=== PATIENT | female | born 1935 | race Caucasian/White ===

== ENCOUNTER 2022-04-03 12:45 | Emergency (ER) | payer MEDICARE, SELFPAY ==
--- NOTE | ~2022-04-03 | CT_ITS ---
EXAMINATION: CT CHEST WITHOUT CONTRAST CLINICAL INFORMATION: Fall. Sternal pain. COMPARISON: Chest x-ray 04/03/2022 TECHNIQUE: Multidetector volumetric CT imaging of the chest was done. Axial MIP volume rendering provided. Sagittal and coronal reformatted images were obtained. This CT examination was performed using dose optimization techniques as appropriate, variously including the following: *Automated exposure control *Adjustment of mA and/or kV according to patient size (this includes techniques or standardized protocols for targeted exams where dose is matched to indication/reason for exam; i.e. extremities or head) *Use of iterative reconstruction technique DLP: 234 mGy-cm FINDINGS: LUNGS: Mild mosaic attenuation of lung parenchyma. This suggests small airways disease. There are multiple scattered micronodules measuring 3 mm and smaller in lungs. No suspicious lung nodules. No acute airspace disease. No bronchiectasis. Central bronchial airways are open. MEDIASTINUM: Heart size is enlarged. Pacemaker leads in right atrium and right ventricle. Heavy calcification of mitral valve annulus. Moderate volume of coronary calcifications. Vascular wall calcifications of aorta. No aneurysm of aorta. Trace pericardial effusion. Large right lobe of thyroid measuring 2.5 x 3.7 x 2.8 cm. Coarse calcifications in the thyroid. Recommend nonemergent thyroid ultrasound. No significant lymphadenopathy. There are a few shotty subcentimeter lymph nodes in the pretracheal retrovascular space and AP window. CORONARY ARTERY CALCIFICATION: Moderate volume of coronary calcifications PLEURA: There is no pleural effusion. No pleural mass or thickening. AXILLA: No lymphadenopathy. UPPER ABDOMEN: Unremarkable. OSSEOUS STRUCTURES: Multilevel degenerative spondylosis spine. No acute osseous abnormality. CT/CT chest wo IV con IMPRESSION: 1. No acute abnormality of chest. Mosaic attenuation of lung parenchyma. This suggests small airways disease. No bronchiectasis. 2. Cardiomegaly. Pacemaker leads. Heavy calcification of mitral valve annulus. 3. Large right lobe of thyroid with coarse calcifications. Recommend follow-up thyroid ultrasound. 4. Multiple scattered micronodules measuring 3 mm and smaller in lungs. No suspicious lung nodules. 2017 Fleischner Society Recommendations for Lung Nodule(s): Follow-Up based on size (average of long- and short-axis diameters). Use most suspicious nodule for followup. Multiple Solid lung nodules < 6 mm: Follow up management based on most suspicious nodule. In a low-risk patient, no routine follow-up imaging is recommended. In a high-risk patient, a non-contrast Chest CT at 12 months is optional. If performed and the nodule is stable at 12 months, no further follow-up is recommended. These guidelines do not apply to patients younger than 35 years, immunocompromised patients, and patients with cancer. F/u in patients with significant comorbidities as clinically warranted. For lung cancer screening, adhere to Lung-RADS guidelines. Reference: Radiology. 2017 Angel; 284(1):228-243 5. No fracture. No acute osseous abnormality. Fleischner guidelines were followed.
--- NOTE | ~2022-04-03 | XR_ITS ---
EXAMINATION: XR CHEST CLINICAL INFORMATION: Sternal pain status post fall. COMPARISON: None TECHNIQUE: Frontal view of the chest was obtained. FINDINGS: Support devices: Left-sided pacemaker appears in good position. Asymmetric opacification is seen in the right infrahilar region. The right and left lung are otherwise clear. The heart is mildly enlarged. Coarse mitral annular calcifications are noted. The mediastinal structures are unremarkable left-sided pacemaker device appears in good position. No overt acute osseous abnormality. XR/XR chest 1V IMPRESSION: Asymmetric opacification in the right infrahilar the be projectional representing vascular crowding and/or atelectasis. An infiltrate cannot be completely excluded. If clinically indicated, PA and lateral views of the chest are recommended.
--- NOTE | 2022-04-03 14:04 | ED.GENADULT ---
HPI - General Adult General Chief complaint: Fall <JUAN Loredo Last Filed: 04/03/22 14:11> Stated complaint: fall a few weeks ago, sharp pain in chest <JUAN Loredo Last Filed: 04/03/22 14:11> Time Seen by Provider: 04/03/22 18:02 <JUAN Loerdo Last Filed: 04/03/22 14:11> Source: patient and family <JUAN Mayen Last Filed: 04/03/22 18:22> Mode of arrival: ambulatory <JUAN Mayen Last Filed: 04/03/22 18:22> Limitations: no limitations <JUAN Mayen Last Filed: 04/03/22 18:22> History of Present Illness HPI narrative: 87-year-old female presents to the ER for evaluation of pain in her chest wall after falling 2 weeks ago. She reports pain in her sternum with bruising of the area and on her right breast. She had an x-ray of the sternum done as an outpatient that showed no acute fracture. She states about 3 days ago she was getting intermittent shooting, nerve pains in the center of her chest that radiated out towards her ribs. This was happening when she was just sitting there. They would last a 2nd or 2. It went away on its own and recurred again yesterday. No associated shortness of breath, nausea, diaphoresis. No radiation of the pain. No chest pressure or tightness. Patient is wondering if these pains are related to her chest wall pains and bruising. <JUAN Mayen - Last Filed: 04/03/22 18:22> MD complaint: Chest wall pain <JUAN Mayen Last Filed: 04/03/22 18:22> Onset (ago): day(s) <JUAN Mayen Last Filed: 04/03/22 18:22> Location: chest <JUAN Mayen Last Filed: 04/03/22 18:22> Radiation: non-radiation <JUAN Mayen Last Filed: 04/03/22 18:22> Severity: moderate <JUAN Mayen Last Filed: 04/03/22 18:22> Quality: sharp <JUAN Mayen Last Filed: 04/03/22 18:22> Relieving factors: none <JUAN Mayen Last Filed: 04/03/22 18:22> Exacerbating factors: movement <JUAN Mayen Last Filed: 04/03/22 18:22> Associated symptoms: denies other symptoms <JUAN Mayen Last Filed: 04/03/22 18:22> Treatments prior to arrival: none <JUAN Mayen Last Filed: 04/03/22 18:22> Related Data Allergies/adverse reactions: Allergies Allergy/AdvReac Type Severity Reaction Status Date / Time Penicillins Allergy Rash Verified 04/03/22 14:07 <JUAN Loredo Last Filed: 04/03/22 14:11> Review of Systems Review of Systems: Constitutional: No Fever, No Chills Cardiovascular: + Chest Pain, No SOB, No Orthopnea, No Edema Respiratory: No Cough, No Sputum, No Wheezing, No dyspnea Gastrointestinal: No Nausea, No Vomiting, No Diarrhea, No abdominal Pain Genitourinary: No Dysuria, No Urinary Frequency, No Hematuria Musculoskeletal: No joint pain, No Myalgias Skin: No Skin Lesions, No rash Neuro: No Weakness, No Numbness, No Dizziness, No Headache Psych: + Anxiety/Panic, No Depression Heme/Lymph: + Bruising, No Lymphadenopathy <JUAN Mayen Last Filed: 04/03/22 18:22> [facility], LAT[facility] Social History Social History: Social History Advance Directives: No Advance Directives Information Provided: Yes <JUAN Loredo Last Filed: 04/03/22 14:11> Physical Exam ED Vital Signs: Vital Signs - 24 hr 04/03/22 14:08 Temperature 97 F Pulse Rate 60 Respiratory Rate 18 Blood Pressure 114/49 L Pulse Oximetry 93 Oxygen Delivery Method Room Air BMI result Body Mass Index 30.2 <JUAN Loredo Last Filed: 04/03/22 14:11> Vital Signs - 24 hr 04/03/22 14:08 Temperature 97 F Pulse Rate 60 Respiratory Rate 18 Blood Pressure 114/49 L Pulse Oximetry 93 Oxygen Delivery Method Room Air BMI result Body Mass Index 30.2 <JUAN Mayen Last Filed: 04/03/22 18:22> Appearance: Alert. Oriented X3. No acute distress. HEENT: normal external inspection Neck: Normal inspection. Neck supple. CVS: Normal heart rate and rhythm. Pulses normal. +systolic murmur. Right breast with ecchymosis in yellow/blue coloration. minimal tenderness over the ecchymosis. sternum without exquisite tenderness, no crepitus. Respiratory: No respiratory distress. Breath sounds normal. Abdomen: Soft and nontender. +BS x4 Skin: Skin warm and dry. Normal skin color. Normal skin turgor. No rashes. Extremities: normal inspection x4. Neuro: Oriented X 3. No motor deficit. No sensory deficit. Steady gait. <JUAN Mayen Last Filed: 04/03/22 18:22> Course Reevaluation(s) Reevaluation #1: 87 year old female presens s/p fall two weeks ago, complaining of pain to sternum, worsening over the past few days. When she fell she hit her sternum on a basket. PCP ordered an xray which was negative. Now reports severe sharp pain to sternal region. No SOB. No fevers, chills,no new trauma. No loc w/ fall or head strike. On eliquis PE: R. breast bruising and pain w/ palp to anterior chest wall Plan: labs, imaging, ekg <JUAN Loredo Last Filed: 04/03/22 14:11> Time: 14:11 <JUAN Loredo Last Filed: 04/03/22 14:11> Reevaluation #2: Lab workup is unremarkable. CT scan without traumatic injury. Troponin 5.4, not consistent with cardiac ischemia. History not consistent with ACS. She has appointment with her cardiac surgeon in early April. Comfortable with d/c home. D/C instructions d/w patient and family at the bedside. <JUAN Mayen Last Filed: 04/03/22 18:22> Time: 18:19 <JUAN Mayen Last Filed: 04/03/22 18:22> Medical Decision Making Lab Data Result diagrams: : 04/03/22 15:42 04/03/22 15:42 <JUAN Loredo - Last Filed: 04/03/22 14:11> Labs: Lab Results 04/03/22 04/03/22 04/03/22 Range/Units 15:42 15:42 15:42 WBC 6.0 (4.8-10.8) X10*3/uL RBC 5.15 (4.20-5.50) X10*6/uL Hgb 14.7 (12.0-16.0) g/dl Hct 45.4 (37.0-47.0) % MCV 88.2 (80.0-98.0) fL MCH 28.5 (27.0-33.0) pg MCHC 32.4 (31.0-35.0) g/dl RDW 15.3 (11.0-16.0) % Plt Count 173 (160-400) X10*3/uL MPV 8.4 L (9.4-12.3) fL Immature Gran % (Auto) 0.5 H (0.0-0.4) % Neut % (Auto) 66.4 (45-73) % Lymph % (Auto) 16.4 L (20-40) % Calvert % (Auto) 12.4 H (2-11) % Eos % (Auto) 3.5 (0-4) % Baso % (Auto) 0.8 (0-2) % Lymph # (Auto) 1.0 L (1.2-4.9) X10*3/uL Calvert # (Auto) 0.7 (0.1-1.2) X10*3/uL Eos # (Auto) 0.2 (0.0-0.4) X10*3/uL Baso # (Auto) 0.1 (0.0-0.2) X10*3/uL Abs Immat Gran (auto) 0.03 (0.00-0.03) X10*3/uL Absolute Neuts (auto) 4.0 (2.0-8.3) x10*3/uL Absolute Nucleated RBC 0.000 (0.0-0.012) X10*3/uL Nucleated RBC % (auto) 0.0 (0.0-0.2) /100WBC Sodium 138 (135-145) mmol/L Potassium 4.2 (3.3-5.1) mmol/L Chloride 101 (96-108) mmol/L Carbon Dioxide 24 (22-29) mmol/L Anion Gap 17 (12-20) BUN 32 H (9-16) mg/dL Creatinine 1.31 (0.5-1.4) mg/dL Estim Creat Clear Calc 28.6 Estimated GFR 38 Random Glucose 109 (60-115) mg/dL Calcium 10.4 H (8.4-10.2) mg/dL Magnesium 2.3 (1.6-2.6) mg/dL Total Bilirubin 1.8 H (0.0-1.0) mg/dL AST 17 (5-31) U/L ALT 11 (0-31) U/L Alkaline Phosphatase 46 (39-117) U/L Troponin I High Sens 5.4 (<3.5-17.0) ng/L Total Protein 7.6 (6.5-8.0) g/dL Albumin 4.6 (3.5-5.0) g/dL <JUAN Loredo - Last Filed: 04/03/22 14:11> Lab Results 04/03/22 04/03/22 04/03/22 Range/Units 15:42 15:42 15:42 WBC 6.0 (4.8-10.8) X10*3/uL RBC 5.15 (4.20-5.50) X10*6/uL Hgb 14.7 (12.0-16.0) g/dl Hct 45.4 (37.0-47.0) % MCV 88.2 (80.0-98.0) fL MCH 28.5 (27.0-33.0) pg MCHC 32.4 (31.0-35.0) g/dl RDW 15.3 (11.0-16.0) % Plt Count 173 (160-400) X10*3/uL MPV 8.4 L (9.4-12.3) fL Immature Gran % (Auto) 0.5 H (0.0-0.4) % Neut % (Auto) 66.4 (45-73) % Lymph % (Auto) 16.4 L (20-40) % Calvert % (Auto) 12.4 H (2-11) % Eos % (Auto) 3.5 (0-4) % Baso % (Auto) 0.8 (0-2) % Lymph # (Auto) 1.0 L (1.2-4.9) X10*3/uL Calvert # (Auto) 0.7 (0.1-1.2) X10*3/uL Eos # (Auto) 0.2 (0.0-0.4) X10*3/uL Baso # (Auto) 0.1 (0.0-0.2) X10*3/uL Abs Immat Gran (auto) 0.03 (0.00-0.03) X10*3/uL Absolute Neuts (auto) 4.0 (2.0-8.3) x10*3/uL Absolute Nucleated RBC 0.000 (0.0-0.012) X10*3/uL Nucleated RBC % (auto) 0.0 (0.0-0.2) /100WBC Sodium 138 (135-145) mmol/L Potassium 4.2 (3.3-5.1) mmol/L Chloride 101 (96-108) mmol/L Carbon Dioxide 24 (22-29) mmol/L Anion Gap 17 (12-20) BUN 32 H (9-16) mg/dL Creatinine 1.31 (0.5-1.4) mg/dL Estim Creat Clear Calc 28.6 Estimated GFR 38 Random Glucose 109 (60-115) mg/dL Calcium 10.4 H (8.4-10.2) mg/dL Magnesium 2.3 (1.6-2.6) mg/dL Total Bilirubin 1.8 H (0.0-1.0) mg/dL AST 17 (5-31) U/L ALT 11 (0-31) U/L Alkaline Phosphatase 46 (39-117) U/L Troponin I High Sens 5.4 (<3.5-17.0) ng/L Total Protein 7.6 (6.5-8.0) g/dL Albumin 4.6 (3.5-5.0) g/dL <JUAN Mayen - Last Filed: 04/03/22 18:22> ECG Data Attestation: I personally reviewed and interpreted this ECG as follows: <JUAN Mayen - Last Filed: 04/03/22 18:22> Interpretation: Ventricular paced rhythm, ventricular rate 60 beats per minute, T-wave inversions in leads 1, aVL no ST segment elevations or depressions. <JUAN Mayen Last Filed: 04/03/22 18:22> Critical Care Time Critical Care Time Critical Care Time: No <JUAN Mayen Last Filed: 04/03/22 18:22> Discharge Plan Discharge Clinical Impression: Superficial bruising of chest wall <JUAN Loredo Last Filed: 04/03/22 14:11> Patient Disposition: Home, Self-Care <JUAN Loredo Last Filed: 04/03/22 14:11> Instructions: Contusion in Adults (ED) <JUAN Loredo Last Filed: 04/03/22 14:11> Additional Instructions: Your lab workup today was unremarkable. Your CT scans did not show any traumatic injuries. Follow up with your doctors. 1.? No acute abnormality of chest. Mosaic attenuation of lung parenchyma. This suggests small airways disease. No bronchiectasis. 2.? Cardiomegaly. Pacemaker leads. Heavy calcification of mitral valve annulus. 3.? Large right lobe of thyroid with coarse calcifications. Recommend follow-up thyroid ultrasound. 4. Multiple scattered micronodules measuring 3 mm and smaller in lungs. No suspicious lung nodules. 2017 Fleischner Society Recommendations for Lung Nodule(s): Follow-Up based on size (average of long- and short-axis diameters). Use most suspicious nodule for followup. If you develop new or worsening symptoms call 911 or come back to the ER for further evaluation. <JUAN Loredo - Last Filed: 04/03/22 14:11>
[2022-04-03 14:08] VITALS: BP 114/49; PULSE 60; RESP 18; TEMP 36.1; O2SAT 93; BMI 30.2
--- NOTE | 2022-04-03 14:12 | ECG_ITS ---
Test Reason : CHEST PAIN Blood Pressure : / mmHG Vent. Rate : 060 BPM Atrial Rate : 208 BPM P-R Int : 000 ms QRS Dur : 164 ms QT Int : 522 ms P-R-T Axes : 000 -68 103 degrees QTc Int : 522 ms Ventricular-paced rhythm Abnormal ECG No previous ECGs available Referred By: Joy Hendrickson Electronically Signed By:LY DANIELSON MD
[2022-04-03 15:48] LABS: MANUAL DIFF FLAG NO
[2022-04-03 15:50] LABS: Basophils Absolute Auto 0.1 X10*3/uL (0.0-0.2); Basophils Percent Auto 0.8 % (0-2); Eosinophils Absolute Auto 0.2 X10*3/uL (0.0-0.4); Eosinophils Percent Auto 3.5 % (0-4); Hematocrit 45.4 % (37.0-47.0); Hemoglobin 14.7 g/dl (12.0-16.0); Imm Gran Abs Auto 0.03 X10*3/uL (0.00-0.03); Imm Gran Pct Auto 0.5 % (0.0-0.4); Lymphocytes Percent Auto 16.4 % (20-40); Mean Corpuscular HGB Conc 32.4 g/dl (31.0-35.0); Mean Corpuscular Hemoglobin 28.5 pg (27.0-33.0); Mean Corpuscular Volume 88.2 fL (80.0-98.0); Mean Platelet Volume 8.4 fL (9.4-12.3); Monocytes Absolute Auto 0.7 X10*3/uL (0.1-1.2); Monocytes Percent Auto 12.4 % (2-11); Neutrophils Percent Auto 66.4 % (45-73); Platelet Count 173 X10*3/uL (160-400); Red Blood Count 5.15 X10*6/uL (4.20-5.50); Red Cell Distribution Width 15.3 % (11.0-16.0)
[2022-04-03 16:09] LABS: Alanine Aminotransferase 11 U/L (0-31); Albumin Level 4.6 g/dL (3.5-5.0); Alkaline Phosphatase 46 U/L (39-117); Anion Gap 17 (12-20); Aspartate Amino Transferase 17 U/L (5-31); Bilirubin Total 1.8 mg/dL (0.0-1.0); Blood Urea Nitrogen 32 mg/dL (9-16); Calcium 10.4 mg/dL (8.4-10.2); Carbon Dioxide 24 mmol/L (22-29); Chloride 101 mmol/L (96-108); Creatinine Clr Calc Pharmacy 28.6; Estimated Glomerular Filt Rate 38; Glucose Random 109 mg/dL (60-115); Magnesium 2.3 mg/dL (1.6-2.6); Potassium 4.2 mmol/L (3.3-5.1); Sodium 138 mmol/L (135-145); Total Protein 7.6 g/dL (6.5-8.0)
[2022-04-03 16:15] LABS: Troponin-I High Sensitivity 5.4 ng/L (<3.5-17.0)
== END 2022-04-03 18:36 | disposition home or self-care (01) ==
PROVIDERS: Physician Assistant; Emergency Provider Internal Medicine
DX: S20.211A Contusion of right front wall of thorax, initial encounter (principal); W01.0XXA Fall on same level from slipping, tripping and stumbling without subsequent striking against object, initial encounter; Z91.81 History of falling; Y93.9 Activity, unspecified; Y92.009 Unspecified place in unspecified non-institutional (private) residence as the place of occurrence of the external cause; Y99.9 Unspecified external cause status
CPT/HCPCS: 36415; 71045; 71250; 80053; 83735; 84484; 85025; 93005; 99283; 99284